=== PATIENT | male | born 1955 | race American Indian/Alaskan Native ===

== ENCOUNTER 2017-12-10 16:18 | Emergency (ER) | payer MEDICAID ==
[2017-12-10 16:59] VITALS: TEMP 98.5; O2SAT 99
--- NOTE | 2017-12-10 18:02 | C.PDOC ---
History Of Present Illness 62-year-old male presents to the ED for evaluation of left arm weakness (proximal shoulder girdle) which began one week ago. Patient reports feeling weakness when he tries to fully extend his arm and notes his arm feels uncoordinated at times when he tries to move it. He also reports chronic neck pain, for which he attends pain management. Patient was evaluated by his physician at [facility] and was advised to report to the ED for a head CT. Patient denies chest pain, abdominal pain, numbness (contrary to triage), weakness to lower extremities or trouble walking. Time Seen by Provider: 12/10/17 17:50 Chief Complaint (Nursing): Weakness/Neurological Deficit History Per: Patient History/Exam Limitations: no limitations Onset/Duration Of Symptoms: Other (one week ) Current Symptoms Are (Timing): Still Present Additional History Per: Patient - Symptoms Of CVA Associated Symptoms: denies: Decreased Ability To Walk Past Medical History Reviewed: Historical Data, Nursing Documentation, Vital Signs Vital Signs: Last Vital Signs Temp 98.5 F 12/10/17 16:56 Pulse 87 12/10/17 16:56 Resp 18 12/10/17 16:56 BP 144/93 H 12/10/17 16:56 Pulse Ox 99 12/10/17 16:56 - Medical History PMH: HTN Surgical History: No Surg Hx Family History: States: Unknown Family Hx - Social History Hx Alcohol Use: Yes Hx Substance Use: No - Immunization History Hx Tetanus Toxoid Vaccination: No Hx Influenza Vaccination: No Hx Pneumococcal Vaccination: No Review Of Systems Cardiovascular: Negative for: Chest Pain Gastrointestinal: Negative for: Abdominal Pain Musculoskeletal: Positive for: Neck Pain (chronic ) Neurological: Positive for: Weakness (left arm ). Negative for: Numbness Physical Exam - Physical Exam Appears: Non-toxic, No Acute Distress Skin: Normal Color, Warm, Dry Head: Atraumatic, Normacephalic Eye(s): bilateral: Normal Inspection Oral Mucosa: Moist Neck: Midline Cervical Tenderness (around C7-T1 region ), Supple Chest: Symmetrical, No Deformity, No Tenderness Cardiovascular: Rhythm Regular, No Murmur Respiratory: Normal Breath Sounds, No Rales, No Rhonchi, No Wheezing Gastrointestinal/Abdominal: Soft, No Tenderness, No Guarding, No Rebound Extremity: Normal ROM, Capillary Refill (less than 2 seconds ) Neurological/Psych: Oriented x3, Normal Speech, Normal Cognition, Other (weakne ss of shoulder extension and external rotation ) Gait: Steady ED Course And Treatment O2 Sat by Pulse Oximetry: 99 (on RA ) Pulse Ox Interpretation: Normal - CT Scan/US head Other Rad Studies (CT/US): Read By Radiologist, Radiology Report Reviewed CT/US Interpretation: Accession No. : [id number]. Patient Name / ID : CONNOR BENNETT / [id number]. Exam Date : 12/10/2017 18:22:31 ( Approved ). Study Comment : Sex / Age : M / 62Y. Creator : Ximena Downing MD. Dictator : Ximena Downing MD. Cream Buyer : Shift Commander : Ximena Downing MD. Approver2 : Report Date : 12/10/2017 18:37:29. My Comment : . Date of service: 12/10/2017. PROCEDURE: CT HEAD WITHOUT CONTRAST. HISTORY: neck pain and left arm weakness. COMPARISON: None available. TECHNIQUE: Axial computed tomography images were obtained through the head/brain without intravenous contrast. Radiation dose: Total exam DLP = 1206.81 mGy-cm. This CT exam was performed using one or more of the following dose reduction techniques: Automated exposure control, adjustment of the mA and/or kV according to patient size, and/or use of iterative reconstruction technique. FINDINGS: Mild streak artifact limits evaluation of the skull base. HEMORRHAGE: No intracranial hemorrhage. BRAIN: Diffuse atrophy with prominence of the ventricles and sulci noted. No mass effect or edema. Intracranial atherosclerosis. Mild white matter hypodensities, which are nonspecific, but often seen with chronic microvascular ischemic disease. Please note that MRI with diffusion imaging is more sensitive in the detection of acute ischemic event. VENTRICLES: No hydrocephalus. CALVARIUM: Unremarkable. PARANASAL SINUSES: Unremarkable as visualized. No significant inflammatory changes. MASTOID AIR CELLS: Unremarkable as visualized. No inflammatory changes. OTHER FINDINGS: None. IMPRESSION: No acute intracranial pathology identified. Findings as above. neck Other Rad Studies (CT/US): Read By Radiologist, Radiology Report Reviewed CT/US Interpretation: Accession No. : [id number]. Patient Name / ID : CONNOR BENNETT / [id number]. Exam Date : 12/10/2017 18:25:03 ( Approved ). Study Comment : Sex / Age : M / 62Y. Creator : Ximena Downing MD. Dictator : Ximena Downing MD. Cream Buyer : Shift Commander : Ximena Downing MD. Approver2 : Report Date : 12/10/2017 18:52:07. My Comment : . Date of service: 12/10/17. CT cervical spine without IV contrast. Indication: Neck pain and left shoulder girdle weakness. Comparison: None available. Technique: Axial computed tomography images were obtained of the cervical spine without the use of intravenous contrast. Coronal and sagittal reformatted images were created and reviewed. This CT exam was performed using 1 or more of the following dose reduction techniques: Automated exposure control, adjustment of the MAA and/or kV according to patient size, and/or use of iterative reconstruction technique. Radiation dose: Total exam DLP = 564.07 mGy-cm. Findings: Straightening of the normal cervical lordosis may be related to muscle spasm or positioning. There is no evidence of acute fracture or subluxation. Multilevel degenerative changes including intervertebral disc space narrowing and osteophyte formation. The prevertebral soft tissues and spinolaminar lines appear intact. The lateral masses are preserved. The dens tip is intact. There is proper alignment of the lateral masses of C1 with the C2 vertebral body. Bilateral carotid artery calcifications. Included portions of the thyroid gland appear unremarkable. Included portions of lung apices appear clear. Impression: Straightening of the normal cervical lordosis may be related to muscle spasm or positioning. No evidence of acute fracture or subluxation. Bilateral carotid artery calcifications Progress Note: CT Head and CT Cervical Spine ordered and reviewed. Reevaluation Time: 18:59 Reassessment Condition: Unchanged Disposition Counseled Patient/Family Regarding: Studies Performed, Diagnosis, Need For Followup, Rx Given - Disposition Referrals: [facility] [Outside] Disposition: HOME/ ROUTINE Disposition Time: 19:11 Condition: STABLE Prescriptions: Prednisone 50 mg PO DAILY #7 tablet Instructions: Neck Pain Forms: [facility] (Kyrgyz) - Clinical Impression Clinical Impression: Muscle weakness, Neck pain, Muscle weakness of left upper extremity - Scribe Statement The provider has reviewed the documentation as recorded by the Scribe (Elisabeth Cintron) Provider Attestation: All medical record entries made by the Scribe were at my direction and personally dictated by me. I have reviewed the chart and agree that the record accurately reflects my personal performance of the history, physical exam, medical decision making, and the department course for this patient. I have also personally directed, reviewed, and agree with the discharge instructions and disposition.
--- NOTE | 2017-12-10 18:41 | CT ---
Date of service: 12/10/2017 PROCEDURE: CT HEAD WITHOUT CONTRAST. HISTORY: neck pain and left arm weakness COMPARISON: None available. TECHNIQUE: Axial computed tomography images were obtained through the head/brain without intravenous contrast. Radiation dose: Total exam DLP = 1206.81 mGy-cm. This CT exam was performed using one or more of the following dose reduction techniques: Automated exposure control, adjustment of the mA and/or kV according to patient size, and/or use of iterative reconstruction technique. FINDINGS: Mild streak artifact limits evaluation of the skull base. HEMORRHAGE: No intracranial hemorrhage. BRAIN: Diffuse atrophy with prominence of the ventricles and sulci noted. No mass effect or edema. Intracranial atherosclerosis. Mild white matter hypodensities, which are nonspecific, but often seen with chronic microvascular ischemic disease. Please note that MRI with diffusion imaging is more sensitive in the detection of acute ischemic event. VENTRICLES: No hydrocephalus. CALVARIUM: Unremarkable. PARANASAL SINUSES: Unremarkable as visualized. No significant inflammatory changes. MASTOID AIR CELLS: Unremarkable as visualized. No inflammatory changes. OTHER FINDINGS: None. IMPRESSION: No acute intracranial pathology identified. Findings as above.
--- NOTE | 2017-12-10 18:55 | CT ---
Date of service: 12/10/17 CT cervical spine without IV contrast Indication: Neck pain and left shoulder girdle weakness Comparison: None available Technique: Axial computed tomography images were obtained of the cervical spine without the use of intravenous contrast. Coronal and sagittal reformatted images were created and reviewed. This CT exam was performed using 1 or more of the following dose reduction techniques: Automated exposure control, adjustment of the MAA and/or kV according to patient size, and/or use of iterative reconstruction technique. Radiation dose: Total exam DLP = 564.07 mGy-cm. Findings: Straightening of the normal cervical lordosis may be related to muscle spasm or positioning. There is no evidence of acute fracture or subluxation. Multilevel degenerative changes including intervertebral disc space narrowing and osteophyte formation. The prevertebral soft tissues and spinolaminar lines appear intact. The lateral masses are preserved. The dens tip is intact. There is proper alignment of the lateral masses of C1 with the C2 vertebral body. Bilateral carotid artery calcifications. Included portions of the thyroid gland appear unremarkable. Included portions of lung apices appear clear. Impression: Straightening of the normal cervical lordosis may be related to muscle spasm or positioning. No evidence of acute fracture or subluxation. Bilateral carotid artery calcifications.
[2017-12-10 19:23] VITALS: BP 147/100; PULSE 78; RESP 20
== END 2017-12-10 19:23 | disposition home or self-care (01) ==
LOC: C.ER 16:18
DX: M62.81 Muscle weakness (generalized) (principal); M54.2 Cervicalgia; I10 Essential (primary) hypertension; F17.210 Nicotine dependence, cigarettes, uncomplicated